=== PATIENT | female | born 1950 | race Caucasian/White ===

== ENCOUNTER 2018-10-10 09:52 | Observation (INO) | payer OTHER, MEDICARE ==
[2018-10-10] MEDS ORDERED: GABAPENTIN 300 MG CAP PO ONE (10:47)
[2018-10-10] MEDS ORDERED: ceFAZolin 2 GM/DEXTROSE 100 ML IV ONE (10:47)
[2018-10-10] MEDS ORDERED: ACETAMINOPHEN 500 MG TAB PO ONE (10:47)
[2018-10-10] MEDS ORDERED: DEXMEDETOMIDINE HCL 400 MCG in NS 100 ML IV ONE (11:30)
[2018-10-10] MEDS ORDERED: THROMBIN (BOVINE) 20,000 UNIT VIAL TP ONE (11:42)
[2018-10-10] MEDS ORDERED: SURGIFLO MATRIX KIT WITH THROMBIN 8 ML TP ONE (11:42)
[2018-10-10] MEDS ORDERED: CHLORHEXIDINE GLUC HIBICLENS 118 ML BTL TP ONE (11:42)
[2018-10-10] MEDS ORDERED: AVITENE POWDER 1 GM JAR TP ONE (11:43)
[2018-10-10] MEDS ORDERED: EPINEPHrine 1 MG/ML INJ ONE (11:43)
[2018-10-10] MEDS ORDERED: BUPIVACAINE 0.25% 30 ML SDV ONE (11:43)
[2018-10-10] MEDS ORDERED: BACITRACIN 50,000 UNITS/10 ML SYR IRR ONE (11:44)
[2018-10-10] MEDS ORDERED: REMIFENTANIL HCL 1 MG VIAL ONE (11:56)
[2018-10-10] MEDS ORDERED: LIDOCAINE 2% 100 MG/5 ML SYR ONE (11:56)
[2018-10-10] MEDS ORDERED: PROPOFOL/EMULSION 500 MG/50 ML BOTTLE IV ONE ×2 (11:56→13:46)
[2018-10-10] MEDS ORDERED: PROPOFOL 200 MG/20 ML VIAL ONE (11:56)
[2018-10-10] MEDS ORDERED: VANCOMYCIN HCL/NORMAL SALINE 250 ML IV ONE (12:00)
[2018-10-10] MEDS ORDERED: SCOPOLAMINE HYDROBROMIDE 1 MG/3 DAYS PATCH TD ONE (12:01)
--- NOTE | 2018-10-10 12:13 | PDHPUP ---
History & Physical Update H&P update statement: This history and physical update is based on an assessment of the patient which was completed after admission or registration (within 24 hours), but prior to the surgery/procedure. H&P update: H&P reviewed & patient examined, no change in patient's condition since H&P completed, changes noted
[2018-10-10] MEDS ORDERED: MIDAZOLAM 2 MG/2 ML VIAL IVP ONE (12:19)
[2018-10-10] MEDS ORDERED: MIDAZOLAM 2 MG/2 ML VIAL ONE (12:22)
[2018-10-10] MEDS ORDERED: ROCURONIUM 50 MG/5 ML VIAL ONE (12:25)
[2018-10-10] MEDS ORDERED: LIDOCAINE 2% 5 ML SDV ONE (12:25)
[2018-10-10] MEDS ORDERED: SCOPOLAMINE HYDROBROMIDE 1 MG/3 DAYS PATCH TD SCH (12:30)
--- NOTE | 2018-10-10 13:18 | PDANEPAE ---
ANE History of Present Illness Lumbar pain, radiculopathy and stenosis L4-L5 and here for B hemilaminectomies ANE Past Medical History - Cardiovascular History Hx Hypertension: Yes Hx Arrhythmias: No Hx Chest Pain: No Hx Coronary Artery / Peripheral Vascular Disease: No Hx CHF / Valvular Disease: No Hx Palpitations: No - Pulmonary History Hx COPD: No Hx Asthma/Reactive Airway Disease: No Hx Recent Upper Respiratory Infection: No Hx Oxygen in Use at Home: No Hx Sleep Apnea: No Sleep Apnea Screening Result - Last Documented: Positive Pulmonary History Comment: CHAD Positive, does not wear any device - Neurologic History Hx Cerebrovascular Accident: No Hx Seizures: No Hx Dementia: No Neurologic History Comment: left trigeminal neuralgia. lip numbness, occasional swelling. oral dryness. spinal stenosis. restless leg syndrome - Endocrine History Hx Diabetes: No Endocrine History Comment: hyperparathyroid - Renal History Hx Renal Disorders: No Renal History Comment: urgency - Liver History Hx Hepatic Disorders: No - Neurological & Psychiatric Hx Hx Neurological and Psychiatric Disorders: Yes Neurological / Psychiatric History Comment: anxiety, situational depression R/T trigeminal & back pain - Cancer History Hx Cancer: No - Congenital Disorder History Hx Congenital Disorders: No - GI History Hx Gastrointestinal Disorders: Yes Gastrointestinal History Comment: GERD - Other Health History Other Health History: Factor V Leiden - diagnosed in 2004, took warfarin for years now just on ASA 162mg daily. bruises easily. occasional small skin eruptions R/T stress. wears glasses - Chronic Pain History Chronic Pain: Yes (left face, low back) - Surgical History Prior Surgeries: C4-5, 5-6 cervical fusions. ankle surgery. tonsillectomy. hysterectomy. kidney stone removal ANE Review of Systems Review of Systems: - Exercise capacity METS (RN): 4 METS ANE Patient History - Allergies Allergies/Adverse Reactions: acetaminophen [From Lortab] Allergy (Verified 10/03/18 11:58) Rash cephalexin [From Keflex] Allergy (Verified 10/04/18 12:20) Rash, breathing issues ciprofloxacin [From Cipro] Allergy (Verified 10/04/18 12:20) Rash, breathing issues hydrocodone [From Lortab] Allergy (Verified 10/03/18 11:58) Rash metronidazole [From Flagyl] Allergy (Verified 10/04/18 12:20) Rash, breathing issues Penicillins Allergy (Verified 10/04/18 12:20) Rash, from as a child rofecoxib [From Vioxx] Allergy (Verified 10/04/18 12:20) Rash, breathing issues tramadol [From Ultram] Allergy (Verified 10/03/18 11:58) Rash - Home Medications Home Medications: Aspirin [Aspirin 81mg (*)] 162 mg PO HS 10/03/18 [Last Taken Unknown] DULoxetine [Cymbalta 60 MG (*)] 60 mg PO HS 10/03/18 [Last Taken Unknown] Furosemide [Lasix 40 MG (*)] 40 mg PO DAILY 10/03/18 [Last Taken Unknown] Omeprazole 20 mg PO DAILY 10/03/18 [Last Taken Unknown] Potassium Citrate [Potassium Citrate ER] 10 meq PO DAILY 10/03/18 [Last Taken Unknown] Pravastatin Sodium [Pravachol] 40 mg PO HS 10/03/18 [Last Taken Unknown] amLODIPine BESYLATE [Norvasc 5 mg (*)] 5 mg PO HS 10/03/18 [Last Taken Unknown] cycloSPORINE 0.05% [Restasis Opht Drops(*)] 1 drop EACHEYE BID 10/03/18 [Last Taken Unknown] rOPINIRole HCL [Requip 5mg (*)] 10 mg PO HS 10/03/18 [Last Taken Unknown] - NPO status NPO Since - Liquids (Date): 10/09/18 NPO Since - Liquids (Time): 20:30 NPO Since - Solids (Date): 10/09/18 NPO Since - Solids (Time): 22:00 - Smoking Hx Smoking Status: Never smoked - Family Anes Hx Family Hx Anesthesia Complications: none ANE Labs/Vital Signs - Vital Signs Blood Pressure: 139/93 Heart Rate: 93 Respiratory Rate: 14 O2 Sat (%): 95 Height: 151.13 cm Weight: 65.771 kg ANE Physical Exam - Airway Neck exam: decreased ROM, spinal fusion, short neck Mallampati Score: Class 3 Mouth exam: normal dental/mouth exam - Pulmonary Pulmonary: no respiratory distress, no rales or rhonchi - Cardiovascular Cardiovascular: regular rate and rhythym, no murmur, rub, or gallop - ASA Status ASA Status: III ANE Anesthesia Plan Anesthesia Plan: general endotracheal anesthesia (Plan for GS and to lube eyes and lips. Also noted allergies and ordered Vanco in place of ancef for periop antibiotic. Patient did not receive any ancef. wrote Pre op and failed to save it prior to rolling back) Total IV Anesthesia: Yes
[2018-10-10] MEDS ORDERED: KETOROLAC 30 MG/1 ML SDV ONE (14:51)
[2018-10-10] MEDS ORDERED: ONDANSETRON 4 MG/2 ML VIAL ONE (14:52)
[2018-10-10] MEDS ORDERED: oxyCODONE IR 5 MG TAB PO PRN (14:55)
[2018-10-10] MEDS ORDERED: LR 500 ML IV PRN ×2 (14:55→16:38)
[2018-10-10] MEDS ORDERED: DIAZEPAM 5 MG/ML 1 ML SYR IVP PRN (14:55)
[2018-10-10] MEDS ORDERED: HYDROmorphONE/DILAUDID 2 MG/ML INJ IVP PRN (14:55)
[2018-10-10] MEDS ORDERED: fentaNYL 100 MCG/2 ML INJ IVP PRN (14:55)
[2018-10-10] MEDS ORDERED: MEPERIDINE 25 MG/0.5 ML AMP IVP PRN (14:55)
[2018-10-10] MEDS ORDERED: NALOXONE HCL 0.4 MG/ML INJ IVP PRN (14:55)
[2018-10-10] MEDS ORDERED: SUGAMMADEX SODIUM 200 MG/2 ML VIAL IVP ONE (15:07)
[2018-10-10] MEDS ORDERED: HYDROmorphONE/DILAUDID 2 MG/ML INJ ONE (15:07)
[2018-10-10] MEDS ORDERED: METHOCARBAMOL 1,000 MG in NS 50 ML IV ONE (15:10)
--- NOTE | 2018-10-10 15:16 | POSTOPPROG ---
Post Op Note Date of Operation: 10/10/18 Surgeon: Sawyer Miguel [employer] Brusher: HEENA Phillips APC Anesthesia: GET(General Endotracheal) Pre-op Diagnosis: lumbar stenosis, spondylolisthesis Post-op Diagnosis: lumbar stenosis, spondylolisthesis Indication: lumbar stenosis, spondylolisthesis Procedure: L4/5 bilateral hemilaminotomy and Limiflex placement Inf/Abcess present in the surg proc area at time of surgery?: No PA Addendum - Addendum .: S: Resting comfortable, Denies any new leg pain O: NAD A&Ox3 MAEx4 5/5 and equal in BUE and BLE A/p L4/5 bilateral hemilaminotomy and Limiflex placement -Optimize pain management -Advance diet as tolerated -May d/c home when meets PACU criteria -Please notify NS with any change in neuro/motor exam addendum: Patient admitted to the floor for decreased O2 sats anf hypotension in PACU
--- NOTE | 2018-10-10 16:32 | GOP ---
[f rep st] OPERATIVE REPORT DATE OF OPERATION: 10/10/2018 NEUROSURGEON: Sawyer Miguel MD. BOX SHOOK PATCHER: Bing Phillips. ANESTHESIA: General. PREOPERATIVE DIAGNOSIS: 1. L4-L5 grade 1 spondylolisthesis with lateral recess and central stenosis. 2. Bilateral lower extremity claudication, radiculopathy and low back pain. 3. Treatment refractory to nonoperative intervention. POSTOPERATIVE DIAGNOSIS: 1. L4-L5 grade 1 spondylolisthesis with lateral recess and central stenosis. 2. Bilateral lower extremity claudication, radiculopathy and low back pain. 3. Treatment refractory to nonoperative intervention. PROCEDURE PERFORMED: 1. Bilateral L4-L5 hemilaminotomies with mesofacetectomies and lateral recess decompressions. 2. Placement of the LimiFlex device around the cranial aspect of L4 and caudal aspect of L5 spinous processes. 3. Use of intraoperative fluoroscopy, less than 1 hour physician time. 4. Use of neuromonitoring. 5. Use of the operating microscope. FINDINGS: per imaging SPECIMENS: None. ESTIMATED BLOOD LOSS: 20 mL. INDICATIONS: The patient is a very pleasant, 67-year-old woman with a grade 1 spinal listhesis L4-5 who presented with low back pain and lower extremity claudication. After discussion of risks, benefits, and alternatives and after failing nonoperative interventions, she opted to proceed forth with the LimiFlex FDA trial device in contrast to a posterior decompression and fusion. Consents were signed. She presents now for that surgical intervention. DESCRIPTION OF PROCEDURE: The patient was brought to the operating theater and underwent general endotracheal anesthesia without complications. She had Venodynes, ROMAN hose and the appropriate lines placed by Anesthesia. She was flipped prone onto the Johnnie frame, and all bony processes inspected and padded. The lower lumbar region was prepped and draped in the usual sterile surgical fashion. A time-out was completed per protocol. The patient received antibiotics within 1 hour of incision. Using lateral fluoroscopy and a spinal needle, we picked our entry point at the L4-5 level. This was marked in the midline. The incision infiltrated with Marcaine with epinephrine. The incision was taken down with the scalpel blade and using monopolar, taken down through midline through the lumbodorsal fascia. A subperiosteal dissection was carried out to the medial facet joints of L4- L5. Deep retractors were placed to maintain our exposure, and we confirmed our level using lateral fluoroscopy. The microscope was brought into the field to assist with microscopic dissection and to maintain illumination and magnification. At this point, using a combination of the bur tip and the drill bit and Kerrison punches, we completed a bilateral L4-L5 hemilaminotomy with mesofacetectomies. We resected the ligamentum flavum until we felt that everything was well decompressed on manual palpation. At this point, we placed the LimiFlex device around the cranial aspect of the L4 spinous process and the caudal aspect of the L5 spinous process per the manager ent's instructions. The device was tightened. We confirmed location of the device using AP and lateral fluoroscopic images. Once we felt that everything was well decompressed, and the device was in the appropriate place, the placement system was removed. We irrigated the wound copiously with bacitracin irrigation. We closed the wound in multiple layers using Vicryl sutures deep layers and Dermabond for the skin. The patient's wounds were dressed sterilely. She was then flipped supine onto the transfer cart, where she was awakened, extubated and taken to the recovery room in stable condition. There were no complications and no noted changes on neuromonitoring throughout the procedure. COMPLICATIONS: None. /[id number]/MODL MTDBarbara
[2018-10-10] MEDS ORDERED: ONDANSETRON DISINTEGRATING 4 MG TAB PO PRN (17:47)
[2018-10-10] MEDS ORDERED: ONDANSETRON 4 MG/2 ML VIAL IVP PRN (17:47)
[2018-10-10] MEDS ORDERED: POLYETHYLENE GLYCOL 3350 17 GM PKT PO PRN (17:47)
[2018-10-10] MEDS ORDERED: diphenhydrAMINE 25 MG CAP PO PRN (17:47)
[2018-10-10] MEDS ORDERED: BISACODYL 10 MG SUPP PR PRN (17:47)
[2018-10-10] MEDS ORDERED: MAGNESIUM HYDROXIDE 30 ML UDCUP PO PRN (17:47)
[2018-10-10] MEDS ORDERED: HYDROmorphONE/DILAUDID 1 MG/ML INJ IVP PRN (17:47)
[2018-10-10] MEDS ORDERED: LACTULOSE 20 GM/30 ML UDCUP PO PRN (17:47)
[2018-10-10] MEDS ORDERED: NS 1,000 ML IV SCH (18:00)
[2018-10-10] MEDS ORDERED: PRAVASTATIN SODIUM 40 MG TAB PO SCH (21:00)
[2018-10-10] MEDS ORDERED: DULoxetine 60 MG CAP PO SCH (21:00)
[2018-10-10] MEDS: SENNOSIDES/DOCUSATE SODIUM TAB PO SCH (21:56)
[2018-10-11] MEDS ORDERED: VANCOMYCIN 750 MG in D5W 150 ML IV ONE
[2018-10-11] MEDS: cycloSPORINE 0.05% 30 DROPERETTE/BOX EACHEYE SCH ×2 (01:11→11:04)
[2018-10-11] MEDS: oxyCODONE IR 5 MG TAB PO PRN ×2 (01:27→07:59)
[2018-10-11] MEDS: SENNOSIDES/DOCUSATE SODIUM TAB PO SCH (07:54)
[2018-10-11 08:46] VITALS: BP 108/67
--- NOTE | 2018-10-11 08:48 | NEUSURGPN ---
Date of Surgery: 10/10/18 Post Op Day: 1 Assessment/Plan: 67 yo female s/p L4/5 bilateral hemilaminotomy and Limiflex placement POD#1 -Pain controlled -Tolerating diet -Wean to room air -BP stable -Home this morning Discussed with Dr. Miguel. Subjective: Having localized back pain. Objective: Awake. Alert. PERRL. EOMI Facial expression symmetrical Muscle strength full at 5/5 Sensation intact - Physician Discussed Patient with : [facility] Physical Exam - Vitals, I&O, Labs I and O 10/10/18 10/11/18 10/12/18 05:59 05:59 05:59 Intake Total 1725 Output Total 610 300 Balance 1115 -300 Weight 65.771 kg Intake: Oral (ml) 25 IV Intake (ml) 1700 Output: Urine (ml) 600 300 Bedside Commode 600 300 Estimated Blood Loss (ml) 10 Other: Intake Quantity Yes Sufficient Number of Voids Bedside Commode 1 1 Toilet 1 Vital Signs Temp Pulse Resp BP Pulse Ox 36.5 C 89 16 108/67 94 10/11/18 08:00 10/11/18 08:00 10/11/18 08:00 10/11/18 08:00 10/11/18 08:00 ICD10 Worksheet Patient Problems: Problems Problem Status Onset Lumbar stenosis Acute - ICD10 Problem Qualifiers (1) Lumbar stenosis
[2018-10-11] MEDS ORDERED: PANTOPRAZOLE SODIUM 40 MG TAB PO SCH (09:00)
[2018-10-11] MEDS ORDERED: POTASSIUM CITRATE 10 MEQ TAB PO SCH (09:00)
[2018-10-11] MEDS ORDERED: FUROSEMIDE 40 MG TAB PO SCH (09:00)
--- NOTE | 2018-10-11 10:56 | ASMTLACE ---
LIZBETH Length of stay for Answers: 2 days current admission Acuity / Level of Answers: No Care: Did the patient have an inpatient admission? Comorbidities - select Answers: Opioid dependence all that apply / Chronic pain Other Notes: HTN; GERD; Factor V Leiden # of Emergency department Answers: 0 visits in the last 6 months Social determinants Answers: Mental health diagnosis (anxiety, depression, pers onality disorders, etc.) Score: 10 Date Signed: 10/11/2018 10:55 AM Electronically Signed By:SOLITARIO Elizabeth
--- NOTE | 2018-10-11 10:58 | ASMTCMCOM ---
CM Note CM Note Notes: Pt had planned surgery for lumbar stenosis, resides with spouse. PT rec outpatient. Pt to obtain walker. No CM d/c needs identified. Date Signed: 10/11/2018 10:57 AM Electronically Signed By:SOLITARIO Elizabeth
[2018-10-11] MEDS ORDERED: amLODIPine BESYLATE 5 MG TAB PO SCH (21:00)
[2018-10-12] MEDS ORDERED: ENOXAPARIN 40 MG/0.4 ML SYR SC SCH (09:00)
[2018-10-13] MEDS ORDERED: PATCH REMOVAL 1 EA PATCH TD SCH (12:21)
== END 2018-10-11 12:21 | disposition home or self-care (01) ==
LOC: F3N 10:33 → INTOOBSV 10:33 → F3N 18:04
PROVIDERS: ADMIT Physician Assistant; ATTEND Neurological Surgery
DX: M43.16 Spondylolisthesis, lumbar region (principal); M48.062 Spinal stenosis, lumbar region with neurogenic claudication; M54.16 Radiculopathy, lumbar region
CPT/HCPCS: 63030; 97161; 97165; 97535; C1713; J0171; J1170; J1885; J2001; J2250; J2405; J2704; J2800; J3370

== ENCOUNTER → 2018-10-14 | Outpatient (CLI) | payer OTHER, MEDICARE | LOC: BMCIMAGING 15:25 | PROVIDERS: ATTEND Internal Medicine | DX: R60.0 Localized edema (principal); D68.2 Hereditary deficiency of other clotting factors; Z98.890 Other specified postprocedural states ==

== ENCOUNTER → 2019-01-06 | Outpatient (CLI) | payer OTHER, MEDICARE | LOC: FIMAGING 13:31 | PROVIDERS: ATTEND Physician Assistant | DX: M43.16 Spondylolisthesis, lumbar region (principal); M54.40 Lumbago with sciatica, unspecified side; Z98.1 Arthrodesis status ==

== ENCOUNTER 2019-01-13 02:35 | Inpatient (IN) | payer OTHER, MEDICARE ==
--- NOTE | 2019-01-13 03:21 | EDPHY ---
H & P Stated Complaint: low back pain Time Seen by Provider: 01/13/19 03:21 HPI/ROS: Chief Complaint: Severe back pain HPI: Patient is a 68-year-old female with a history of an L5-C9Tphulkqy procedure performed in September of this year she was improving until yesterday when she was walking she started developing pain in the lower back radiating down both legs although left with severe right was mild. She does deny any associated weakness or numbness she denies bowel or bladder incontinence or inability to void. Pain is exacerbated by laughing and bending over and the pain is so severe it is giving her headache she describes as 10/10. She tried herbal patch without relief and that usually works for her pain. She also took her 1 leftover oxycodone from her surgery and that gave her no relief. She denies any associated infectious symptoms. PMH: Spinal fusion, arthritis Social History: No current Tobacco ROS: Neuro: + headache no weakness numbness tingling bowel or bladder incontinence or inability to void Constitutional: No Fever, No dizziness ENT: No runny nose, No sore throat Cardiac: No Chest Pain Pulmonary: No Shortness of Breath GI: No abdominal Pain Skin: No rash Heme: No easy bruising : No urinary problems Eyes: No vision problems Musculoskeletal: No neck pain, + back pain radiating to both legs Complete Review of systems negative except as noted above Physical Exam: General: Alert in severe distress from pain with evident hypertension, she is laying on her back with her legs elevated on a pillow Eyes: no icterus or pallor ENT: Mouth: Mucus membranes dry Neck: supple, no vertebral tenderness Lungs CTA bilaterally, no respiratory distress Cardiac: Normal pulses, normal rate, normal rhythm, normal heart sounds GI: Abd Soft, non tender, no distention Back: Normal inspection, wound is clean dry and intact without signs of cellulitis fluctuance or tenderness, No CVAT, no vertebral tenderness Extremities: Mild bilateral swelling, nml ROM except for limitation due to pain in the back Skin: Warm, pink and dry, no rash, normal turgor Neuro: A&Ox3, MAEE, Nml Speech, normal motor exam in all muscle groups of the lower extremities bilaterally. Normal 2+ DTRs bilaterally. Normal sensation bilaterally Reevaluations, MDM, and data interpretation Data Interpretation Reviewed prior records - [facility]. Surgery care reviewed from prior visit in September. XR shows no malalignment and hardware appears intact without fractures or migration Independently viewed by me ED Course Initial Eval: Pt greeted and advised about plan for care. Reevaluation 1. Patient's pain recurred Dilaudid repeated. Reevaluation 2. After 2nd mg of IV Dilaudid patient still has 8/10 pain though her blood pressure is improved she has slurred speech. At this point will switch to ketamine order labs and admit her to the hospital. I did discuss the case with the patient's on-call neurosurgeon who agreed to come by and consult on the patient if the patient is admitted to medical service. Also discussed the case with the hospitalist Dr. Ordonez. Medical Decision Making Differential Diagnosis and MDM: 68-year-old female with acute intractable lower back pain 3 months postop. Differential diagnosis includes hardware failure, abscess, cellulitis, radicular pain and sciatica. Patient has no neurologic deficits or complaints. She also has no fever. No skin signs of infection. She does have intractable pain so with multiple doses of IV opiates and ketamine patient will be admitted to the hospital for pain control consultation of Spine. - Personal History Current Tetanus/Diphtheria Vaccine: Yes Current Tetanus Diphtheria and Acellular Pertussis (TDAP): Yes - Medical/Surgical History Hx Asthma: No Hx Chronic Respiratory Disease: No Hx Diabetes: No Hx Cardiac Disease: No Hx Renal Disease: No Hx Cirrhosis: No Hx Alcoholism: No Hx HIV/AIDS: No Hx Splenectomy or Spleen Trauma: No Other PMH: hysterectomy. lumb lamiflex. facctor 5 liden - Social History Smoking Status: Never smoked Constitutional: Initial Vital Signs Temperature (C) 36.5 C 01/13/19 02:40 Heart Rate 78 01/13/19 02:40 Respiratory Rate 18 01/13/19 02:40 Blood Pressure 145/99 H 01/13/19 02:40 O2 Sat (%) 96 01/13/19 02:40 O2 Delivery Mode Room Air Allergies/Adverse Reactions: acetaminophen [From Lortab] Allergy (Verified 10/03/18 11:58) Rash cephalexin [From Keflex] Allergy (Verified 10/04/18 12:20) Rash, breathing issues ciprofloxacin [From Cipro] Allergy (Verified 10/04/18 12:20) Rash, breathing issues hydrocodone [From Lortab] Allergy (Verified 10/03/18 11:58) Rash metronidazole [From Flagyl] Allergy (Verified 10/04/18 12:20) Rash, breathing issues Penicillins Allergy (Verified 10/04/18 12:20) Rash, from as a child rofecoxib [From Vioxx] Allergy (Verified 10/04/18 12:20) Rash, breathing issues tramadol [From Ultram] Allergy (Verified 10/03/18 11:58) Rash Home Medications: Medication Instructions Recorded DULoxetine [Cymbalta 60 MG (*)] 60 mg PO HS 10/03/18 Furosemide [Lasix 40 MG (*)] 40 mg PO DAILY 10/03/18 Omeprazole 20 mg PO DAILY 10/03/18 Potassium Citrate [Potassium 10 meq PO DAILY 10/03/18 Citrate ER] Pravastatin Sodium [Pravachol] 40 mg PO HS 10/03/18 cycloSPORINE 0.05% [Restasis Opht 1 drop EACHEYE BID 10/03/18 Drops(*)] rOPINIRole HCL [Requip 5mg (*)] 10 mg PO HS 10/03/18 Sennosides/Docusate Sodium 1 - 2 tab PO BID tab 10/11/18 [Senokot-S] Medical Decision Making - Data Points Medications Given: Acetaminophen (Tylenol) 1,000 mg PO Q8H XAVIER Stop: 07/12/19 06:59 Last Admin: 01/13/19 08:01 Dose: Not Given Ondansetron HCl (Zofran Odt) 4 mg PO Q4HRS PRN PRN Reason: Nausea/Vomiting, Use 1st Stop: 07/12/19 06:45 Last Admin: 01/13/19 08:06 Dose: 4 mg Oxycodone HCl (Oxycodone Ir) 5 - 10 mg PO Q3HRS PRN PRN Reason: Pain, Severe Able to Take PO Stop: 01/23/19 06:47 Last Admin: 01/13/19 08:05 Dose: 5 mg Prednisone (Prednisone) 40 mg PO DAILY XAVIER Stop: 07/12/19 07:29 Last Admin: 01/13/19 08:06 Dose: 40 mg Discontinued Medications Hydromorphone HCl (Dilaudid) 1 mg IVP EDNOW ONE Stop: 05/20/19 04:01 Last Admin: 01/13/19 04:19 Dose: 1 mg Hydromorphone HCl (Dilaudid) 1 mg IVP EDNOW ONE Stop: 01/13/19 05:38 Last Admin: 01/13/19 05:48 Dose: 1 mg Ketamine HCl 7 mg/ Syringe 0.14 mls @ 8.4 mls/hr IVP ONCE ONE Stop: 01/13/19 06:29 Last Admin: 01/13/19 06:47 Dose: 0.14 mls Departure - Departure Disposition: [facility] Acute Clinical Impression: Lumbar stenosis, acute intractable lumbar back pain Condition: Fair
[2019-01-13] MEDS ORDERED: HYDROmorphONE/DILAUDID 2 MG/ML INJ IVP ONE ×2 (04:00→05:37)
[2019-01-13] MEDS ORDERED: HYDROmorphONE/DILAUDID 1 MG/ML INJ ONE ×2 (04:16→05:42)
[2019-01-13] MEDS ORDERED: KETAMINE 7 MG in SYRINGE 0 ML IVP ONE (06:28)
[2019-01-13] MEDS ORDERED: ONDANSETRON DISINTEGRATING 4 MG TAB PO PRN (06:46)
[2019-01-13] MEDS ORDERED: ONDANSETRON 4 MG/2 ML VIAL IVP PRN (06:46)
[2019-01-13] MEDS ORDERED: KETAMINE 200 MG/20 ML VIAL ONE (06:46)
[2019-01-13] MEDS ORDERED: HYDROmorphONE/DILAUDID 1 MG/ML INJ IVP PRN (06:48)
[2019-01-13] MEDS ORDERED: HYDROCODONE/APAP 5/325 TAB PO PRN (06:48)
[2019-01-13 07:11] LABS: PLATELET COUNT 301 10^3/uL (150-400)
--- NOTE | 2019-01-13 07:23 | PDGENHP ---
History and Physical - Chief Complaint Back pain - History of Present Illness 68 yo F w/ hx of chronic back pain s/p cervical and lumbar surgeries presents with acute worsening of back pain. She was walking yesterday when her back pain suddenly worsened. It is so severe that she has difficulty walking. The pain radiates down both legs L>R, which is an increase from baseline. She denies red flag symptoms such as weakness, numbness, or loss of bowel or bladder control. She also denies acute fever and chills. She does think he may have had low grade fevers for several months but no objective findings of this. XR in the ED appears unremarkable but final read pending. NSG consulted in the ED. She is being admitted for pain control. Case discussed with ED physician Dr. Colin; records reviewed and summarized above. History Information - Allergies/Home Medication List Allergies/Adverse Reactions: acetaminophen [From Lortab] Allergy (Verified 10/03/18 11:58) Rash cephalexin [From Keflex] Allergy (Verified 10/04/18 12:20) Rash, breathing issues ciprofloxacin [From Cipro] Allergy (Verified 10/04/18 12:20) Rash, breathing issues hydrocodone [From Lortab] Allergy (Verified 10/03/18 11:58) Rash metronidazole [From Flagyl] Allergy (Verified 10/04/18 12:20) Rash, breathing issues Penicillins Allergy (Verified 10/04/18 12:20) Rash, from as a child rofecoxib [From Vioxx] Allergy (Verified 10/04/18 12:20) Rash, breathing issues tramadol [From Ultram] Allergy (Verified 10/03/18 11:58) Rash Home Medications: DULoxetine [Cymbalta 60 MG (*)] 60 mg PO HS 10/03/18 [Last Taken Unknown] Furosemide [Lasix 40 MG (*)] 40 mg PO DAILY 10/03/18 [Last Taken Unknown] Omeprazole 20 mg PO DAILY 10/03/18 [Last Taken Unknown] Potassium Citrate [Potassium Citrate ER] 10 meq PO DAILY 10/03/18 [Last Taken Unknown] Pravastatin Sodium [Pravachol] 40 mg PO HS 10/03/18 [Last Taken Unknown] cycloSPORINE 0.05% [Restasis Opht Drops(*)] 1 drop EACHEYE BID 10/03/18 [Last Taken Unknown] rOPINIRole HCL [Requip 5mg (*)] 10 mg PO HS 10/03/18 [Last Taken Unknown] I have personally reviewed and updated: family history, medical history - Past Medical History arthritis, DVT, pulmonary embolism Additional medical history: Trigeminal nueralgia. FVL - Surgical History Reports: spinal surgery - Family History Additional family history: FVL - Social History Smoking Status: Never smoked Review of Systems Review of Systems: ROS: 10pt was reviewed & negative except for what was stated in HPI & below Physical Exam Physical Exam: Temp Pulse Resp BP Pulse Ox 36.5 C 72 16 129/90 H 97 01/13/19 02:40 01/13/19 05:44 01/13/19 05:44 01/13/19 05:44 01/13/19 05:44 Constitutional: appears nourished, uncomfortable Eyes: PERRL, EOMI Ears, Nose, Mouth, Throat: moist mucous membranes, no oral mucosal ulcers Cardiovascular: regular rate and rhythym, no murmur, rub, or gallop Respiratory: no respiratory distress, clear to auscultation Gastrointestinal: normoactive bowel sounds, soft, non-tender abdomen Skin: warm, normal color Neurologic: AAOx3, CN II-XII Intact Psychiatric: interacting appropriately, not anxious Lab Data & Imaging Review 01/13/19 07:00 01/13/19 07:00 WBC 12.44 10^3/uL (3.80-9.50) H 01/13/19 07:00 RBC 4.75 10^6/uL (4.18-5.33) 01/13/19 07:00 Hgb 15.2 g/dL (12.6-16.3) 01/13/19 07:00 Hct 43.7 % (38.0-47.0) 01/13/19 07:00 MCV 92.0 fL (81.5-99.8) 01/13/19 07:00 MCH 32.0 pg (27.9-34.1) 01/13/19 07:00 MCHC 34.8 g/dL (32.4-36.7) 01/13/19 07:00 RDW 12.2 % (11.5-15.2) 01/13/19 07:00 Plt Count 301 10^3/uL (150-400) 01/13/19 07:00 MPV 10.0 fL (8.7-11.7) 01/13/19 07:00 Neut % (Auto) 58.2 % (39.3-74.2) 01/13/19 07:00 Lymph % (Auto) 32.4 % (15.0-45.0) 01/13/19 07:00 [place] % (Auto) 7.1 % (4.5-13.0) 01/13/19 07:00 Eos % (Auto) 1.4 % (0.6-7.6) 01/13/19 07:00 Baso % (Auto) 0.6 % (0.3-1.7) 01/13/19 07:00 Nucleat RBC Rel Count 0.0 % (0.0-0.2) 01/13/19 07:00 Absolute Neuts (auto) 7.23 10^3/uL (1.70-6.50) H 01/13/19 07:00 Absolute Lymphs (auto) 4.03 10^3/uL (1.00-3.00) H 01/13/19 07:00 Absolute Monos (auto) 0.88 10^3/uL (0.30-0.80) H 01/13/19 07:00 Absolute Eos (auto) 0.18 10^3/uL (0.03-0.40) 01/13/19 07:00 Absolute Basos (auto) 0.08 10^3/uL (0.02-0.10) 01/13/19 07:00 Absolute Nucleated RBC 0.00 10^3/uL (0-0.01) 01/13/19 07:00 Immature Gran % 0.3 % (0.0-1.1) 01/13/19 07:00 Immature Gran # 0.04 10^3/uL (0.00-0.10) 01/13/19 07:00 Assessment & Plan Assessment: 68 yo F w/ chronic back pain s/p surgery presents with acute flair. Plan: 1. Acute on chronic back pain - No clear precipitant as patient was walking as flare occurred. Pain is severe and limiting patient's ability to walk. She denies red flag symptoms such as weakness, numbness, or loss of bowel or bladder function. She does not take any pain medication at home at baseline. She had a LimiFlex device placed on 10/10/[address] Miguel. - Admit for observation - Await final XR read - Obtain basic lab work - NSG consulted in the ED, will defer need for further imaging to their judgment - Will start APAP scheduled + prednisone - Pain management order set placed - PT/OT evaluations 2. Hx DVT/PE, FVL - With hx of prior blood clots. No longer on AC. 3. Hx trigeminal neuralgia Diet - Regular Code - Full Ppx - SCDs Dispo - Admit under observation status
[2019-01-13] MEDS: ACETAMINOPHEN 500 MG TAB PO SCH ×3 (08:01→22:34)
[2019-01-13] MEDS: oxyCODONE IR 5 MG TAB PO PRN ×4 (08:05→22:35)
[2019-01-13] MEDS: predniSONE 20 MG TAB PO SCH ×2 (08:06→10:25)
--- NOTE | 2019-01-13 09:31 | NEUSURGPN ---
Assessment/Plan: 68 yr old female s/p L4-5 hemilaminotomy and limiflex device placement with Dr Miguel on 10/10/18 Please see dictated consult when available -Patient was doing well post op until yesterday, she began to experience severe lower back and whole LLE pain. Denies weakness or bowel and bladder difficulties -Will get MRI lumbar to eval -Patient admitted to Hospitalist for pain management patient was seen and examined by myself and Dr Miguel in the ER today at 0720 Subjective: low back and left leg pain Objective: AxOx4 MAEx4 5/5 BUE, BLE positive straight leg raise on the left Neuro Check Frequency: per routine Urinary Catheter in Place: No - Physician Patient Seen by Dr.: Miguel Neurosurgery Physical Exam - Vitals, I&O, Labs Vital Signs Temp Pulse Resp BP Pulse Ox 35.7 C L 75 16 112/69 93 01/13/19 07:51 01/13/19 07:51 01/13/19 07:51 01/13/19 07:51 01/13/19 07:51 Laboratory Results 01/13/19 07:00 01/13/19 07:00 ICD10 Worksheet Patient Problems: Problems Problem Status Onset Lumbar stenosis Acute
[2019-01-13] MEDS ORDERED: CEPACOL LOZENGE PO PRN (09:53)
[2019-01-13] MEDS: FUROSEMIDE 40 MG TAB PO SCH (11:20)
[2019-01-13] MEDS: cycloSPORINE 0.05% 30 DROPERETTE/BOX EACHEYE SCH ×2 (13:21→22:34)
[2019-01-13] MEDS ORDERED: KETOROLAC 30 MG/1 ML SDV IVP ONE (14:15)
--- NOTE | 2019-01-13 15:26 | HOSPPROG ---
Hospitalist Progress Note Assessment/Plan: #Back pain: h/o L4-5 hemilaminotomy & limiflex device -NSGY evaluted. MRI pending -pain controlled Subjective: lower back pain with radiation down left leg Objective: Vital Signs Temp Pulse Resp BP Pulse Ox 36.9 C 98 16 147/90 H 90 L 01/13/19 15:17 01/13/19 15:17 01/13/19 15:17 01/13/19 15:17 01/13/19 15:17 Laboratory Results 01/13/19 07:00 01/13/19 07:00 01/12/19 01/13/19 01/14/19 05:59 05:59 05:59 Intake Total 200 Output Total 500 Balance -300 - Physical Exam Constitutional: no apparent distress Ears, Nose, Mouth, Throat: moist mucous membranes Cardiovascular: regular rate and rhythym Respiratory: no respiratory distress Gastrointestinal: normoactive bowel sounds Genitourinary: no bladder fullness Skin: warm Musculoskeletal: full muscle strength Neurologic: AAOx3 Psychiatric: interacting appropriately ICD10 Worksheet Patient Problems: Problems Problem Status Onset Lumbar stenosis Acute
--- NOTE | 2019-01-13 17:27 | ASMTCMCOM ---
CM Note CM Note Notes: Pt is a 68 y/o female admitted for back pain. Pt reports that she had surgery on 10/10 w/ Dr. Miguel. Pt would like CM to set up HC services w/ [facility]. Referral sent and they are able to accept. Therapies are pending at this time. Pt lives w/ her and reports that he can do the cooking. Pt reports that she can ask for help if she needs it. Pt reports that she uses a cane occasionally. CM confirmed pts address, phone number and PCP. CM to follow. Plan: [facility]; PT, OT Date Signed: 01/13/2019 03:15 PM Electronically Signed By:MELVA Navarro
[2019-01-13] MEDS ORDERED: methylPREDNISolone 4 MG TAB PO SCH ×2 (18:00→19:00)
--- NOTE | 2019-01-13 21:20 | GCON ---
[f rep st] CONSULTATION EMERGENCY ROOM CONSULTATION DATE OF CONSULTATION: 01/13/2019 CHIEF COMPLAINT: Low back and left leg pain. HISTORY OF PRESENT ILLNESS: Patient is a 68-year-old female, who is status post L4-5 hemilaminotomy and placement of a LimiFlex device with Dr. Sawyer Miguel on October 10, 2018. Patient was doing well following surgery until yesterday. Patient notes that after she completed a walk yesterday, she began to experience a pressure-like pain in her lower back with shooting pain down into her left leg, which is encompassing her whole leg in no dermatomal pattern. Patient denies any weakness in her lower extremities and denies any issues with her bowel or bladder continence. Patient denies any right leg symptoms. REVIEW OF SYSTEMS: A 10-point review of systems was performed, and negative aside from what was mentioned in the HPI. PAST MEDICAL HISTORY: Arthritis. PAST SURGICAL HISTORY: 1. In 1988, a complete hysterectomy. 2. 2000 and 2001, cervical fusion of C4-5 and C5-6. 3. 2008, kidney stone. 4. 2011, broken ankle. 5. 2012, tonsillectomy. 6. 2016, colon surgery for a large polyp. 7. In 2019, an L4-5 lumbar hemilaminotomy with LimiFlex device placement. ALLERGIES: Cipro, Flagyl, penicillins, Lortab 10/325, Keflex, buspirone, griseofulvin, Ultram. SOCIAL HISTORY: The patient is . She has 3 children. She does not drink alcohol, and does not use nicotine products. Denies any illicit drug use. FAMILY HISTORY: Reviewed and noncontributory to current situation. LABORATORY: White blood cell count is 12.44, hemoglobin 15.2, hematocrit 43.7, platelets are 301. Sodium is 139, potassium 4.1, BUN is 18, creatinine 0.6, glucose 109. IMAGING: X-ray of the lumbar spine demonstrates postsurgical changes with a spinal fixation device at L4-5, which is stable in appearance. Mild disk height narrowing at L4-5 with a mild anterolisthesis of L4 on L5 that are unchanged. No evidence for acute compression fracture of the lumbar spine. There is a chronic compression deformity of T11 that is stable. MRI of the lumbar spine, performed without contrast, demonstrates postsurgical changes at L4-5 with a left hemilaminotomy and spinal fixation with slight improvement of the central spinal canal narrowing on the left and left lateral recess narrowing. There continues to be persistent severe central spinal canal narrowing and stable right lateral recess narrowing. Stable moderate bilateral neural foraminal narrowing. Milder degenerative disk and degenerative joint disease at other levels with stable appearance. PHYSICAL EXAM: VITAL SIGNS: Blood pressure is 111/68, heart rate is 89, oxygen saturation is 94% on 2 L nasal cannula, temperature is 36.7 degrees Celsius. HEENT: Head is normocephalic and atraumatic. Pupils equal, round, and reactive to light. EOMI is intact. Full visual avina by confrontation. RESPIRATORY AND CARDIAC: Deferred. ABDOMEN, GENITOURINARY, RECTAL: Deferred. NEUROLOGIC: The patient is awake, and alert, and oriented to name, place, location, date, time, and situation. Memory is intact to immediate past and current events. Speech: No aphasia or dysphonia. Cranial nerves 2 through 12 are grossly intact. Face is symmetric. Tongue protruded midline. Palate and uvula elevate symmetrically. Shoulder shrug is symmetric. Hearing is intact to light conversation. Motor: Patient has 5/5 strength in all muscle groups in bilateral upper and lower extremities to include deltoids, biceps, triceps, brachialis, wrist flexion and extensors, chief security officer intrinsic fingers iliopsoas, quadriceps, hamstring, plantar flexion, dorsiflexion, EHL testing. Sensation is grossly intact to light touch throughout all dermatomal distributions in bilateral lower extremities. The patient does have a positive straight-leg raise on the left. Is very comfortable throughout the exam with her left leg. NICOLETTE test is negative bilaterally. Reflexes in biceps, brachioradialis, knee jerk are 2+/4. Babinski is negative. Lord's is negative and there is no evidence of clonus. ASSESSMENT AND PLAN: The patient is a 68-year-old female, who is status post left hemilaminotomy and LimiFlex device placement at L4-[address] Miguel on October 10, 2018. The patient tolerated the procedure well without complication. Had been doing very well postoperatively until yesterday, when she had acute onset of pain following a walk. Patient has terrible pain in her lower back, as well diffusely into her left leg. She does not have any weakness on exam. Her MRI of the lumbar spine shows some persistent central stenosis at the level of her surgery. The patient is admitted to the hospitalist service, and we appreciate their help with pain management. We have ordered Toradol 30 mg IV x1 to be given. Dr. Miguel has reviewed the MRI as well, and will speak with the patient about the plan of care. We may consider injections if oral and IV medications do not help subside her acute onset of pain. Patient was seen and examined in the emergency room this morning at 7:20 a.m. by myself and Dr. Sawyer Miguel in the emergency room. /[id number]/MODL MTDD
[2019-01-13] MEDS: DULoxetine 30 MG CAP PO SCH (22:34)
[2019-01-13] MEDS: SENNOSIDES/DOCUSATE SODIUM TAB PO SCH (22:35)
[2019-01-13] MEDS: PRAVASTATIN SODIUM 40 MG TAB PO SCH (22:35)
[2019-01-14] MEDS: oxyCODONE IR 5 MG TAB PO PRN ×3 (03:19→14:58)
[2019-01-14] MEDS ORDERED: methylPREDNISolone 4 MG TAB PO SCH ×2 (07:30→21:00)
--- NOTE | 2019-01-14 08:02 | NEUSURGPN ---
Assessment/Plan: Assessment: 68 yr old female s/p L4-5 hemilaminotomy and limiflex device placement with Dr Miguel on 10/10/18 Plan: -MRI lumbar shows some ongoing stenosis but improved from her pre operative MRI -Patient admitted to Hospitalist for pain management, Toradol x1 and steroids have not improved pain -Will have patient get a L5-S1 injection today, patient is NPO -Discussed patient with Dr Miguel Subjective: continued left leg and low back pain Objective: AxOx4 MAEx4 5/5 BLE Sensation intact to light touch BLE Incision CDI Neuro Check Frequency: per routine Urinary Catheter in Place: No - Physician Discussed Patient with Dr.: Miguel Neurosurgery Physical Exam - Vitals, I&O, Labs I and O 01/13/19 01/14/19 01/15/19 05:59 05:59 05:59 Intake Total 500 Output Total 950 Balance -450 Weight 68.039 kg Intake: Oral (ml) 500 Output: Urine (ml) 950 Toilet 950 Other: Intake Quantity Yes Sufficient Number of Voids Toilet 1 Vital Signs Temp Pulse Resp BP Pulse Ox 36.6 C 71 18 114/68 98 01/14/19 04:00 01/14/19 04:00 01/14/19 04:00 01/14/19 04:00 01/14/19 04:00 Laboratory Results 01/14/19 04:47 01/13/19 07:00 ICD10 Worksheet Patient Problems: Problems Problem Status Onset Lumbar stenosis Acute
[2019-01-14] MEDS: PANTOPRAZOLE SODIUM 40 MG TAB PO SCH (08:21)
[2019-01-14] MEDS: FUROSEMIDE 40 MG TAB PO SCH (08:21)
[2019-01-14] MEDS: predniSONE 20 MG TAB PO SCH (08:21)
[2019-01-14] MEDS: ACETAMINOPHEN 500 MG TAB PO SCH ×3 (08:21→23:33)
[2019-01-14] MEDS: POTASSIUM CITRATE 10 MEQ TAB PO SCH (08:23)
--- NOTE | 2019-01-14 09:29 | HOSPPROG ---
Hospitalist Progress Note Assessment/Plan: DIAGNOSES: * Sciatica with ongoing pain; current MRI shows improved anatomy compared to her MRI before surgery, but still with some lumbar stenosis * Meds include prednisone 40 mg, Cymbalta, Toradol, and p.r.n. 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
[2019-01-14] MEDS ORDERED: fentaNYL 100 MCG/2 ML INJ IVP PRN (10:29)
[2019-01-14] MEDS ORDERED: MIDAZOLAM 2 MG/2 ML VIAL IVP PRN (10:29)
[2019-01-14] MEDS ORDERED: FLUMAZENIL 0.5 MG/5 ML MDV IVP PRN (10:29)
[2019-01-14] MEDS ORDERED: NALOXONE HCL 0.4 MG/ML INJ IVP PRN (10:29)
[2019-01-14] MEDS ORDERED: NS 1,000 ML IV SCH (10:30)
[2019-01-14] MEDS ORDERED: MIDAZOLAM 2 MG/2 ML VIAL ONE (10:47)
[2019-01-14] MEDS ORDERED: fentaNYL 100 MCG/2 ML INJ ONE (10:47)
[2019-01-14] MEDS ORDERED: FLUMAZENIL 0.5 MG/5 ML MDV IVP ONE (10:47)
[2019-01-14] MEDS ORDERED: NALOXONE HCL 0.4 MG/ML INJ ONE (10:48)
[2019-01-14 11:24] LABS: INR 0.89 (0.83-1.16); PROTIME(PATIENT) 11.7 SEC (12.0-15.0)
[2019-01-14] MEDS ORDERED: IOPAMIDOL (ISOVUE-M 300) 15 ML VIAL ONE (12:22)
[2019-01-14] MEDS ORDERED: TRIAMCINOLONE ACETONIDE 200 MG/5 ML MDV IM ONE (12:22)
--- NOTE | 2019-01-14 12:53 | PDPROPOC ---
Sedation Plan of Care ASA Classification: ASA 2 Mallampati Score: Class 2 Mallampati Reference Image:
--- NOTE | 2019-01-14 12:54 | PDRADPN ---
Radiology Procedure Note Date of Procedure: 01/14/19 Radiologist: Amy Ahumada Anesthesia: IV Sedation Pre-op Diagnosis: back pain Post-op Diagnosis: same Procedure: L5-S1 KAVYA Inf/Abcess present in the surg proc area at time of surgery?: No
[2019-01-14] MEDS: cycloSPORINE 0.05% 30 DROPERETTE/BOX EACHEYE SCH ×2 (13:24→21:31)
[2019-01-14] MEDS: PRAVASTATIN SODIUM 40 MG TAB PO SCH (21:30)
[2019-01-14] MEDS: SENNOSIDES/DOCUSATE SODIUM TAB PO SCH (21:30)
[2019-01-14] MEDS: DULoxetine 30 MG CAP PO SCH (21:30)
[2019-01-15] MEDS: oxyCODONE IR 5 MG TAB PO PRN ×2 (02:17→09:12)
[2019-01-15] MEDS ORDERED: methylPREDNISolone 4 MG TAB PO SCH (07:30)
[2019-01-15 08:17] VITALS: BP 154/102
--- NOTE | 2019-01-15 08:45 | SOAPPROG ---
RENA Progress Note Assessment/Plan: Assessment: 68 yo F sp L4/5 limiflex with left leg radicular symptoms that may be from mild L4/5 stenosis on MRI Plan: neuro: pain partially improved after KAVYA yesterday, discussed with patient that it can take 7-10 days before epidural steroids fully work continue with PT/OT if pain improved, then ok to discharge and follow up with Dr Miguel in clinic in 2-3 weeks, to schedule appointment please call with neuro changes discussed with DR Miguel 01/15/19 08:43 Subjective: continued left hip/thigh pain, no weakness, no right leg pain. Objective: Vital Signs Temp Pulse Resp BP Pulse Ox 36.9 C 80 18 154/102 H 94 01/15/19 08:00 01/15/19 08:00 01/15/19 08:00 01/15/19 08:00 01/15/19 08:00 Laboratory Results 01/14/19 04:47 01/13/19 07:00 01/14/19 01/15/19 01/16/19 05:59 05:59 05:59 Intake Total 500 Output Total 950 1050 Balance -450 -1050 PT 11.7 SEC (12.0-15.0) L 01/14/19 11:00 INR 0.89 (0.83-1.16) 01/14/19 11:00 AAOx4, +FC PERRL, EOMI, no facial droop 5/5 + light touch ICD10 Worksheet Patient Problems: Problems Problem Status Onset Lumbar stenosis Acute
[2019-01-15] MEDS: FUROSEMIDE 40 MG TAB PO SCH (09:05)
[2019-01-15] MEDS: POTASSIUM CITRATE 10 MEQ TAB PO SCH (09:05)
[2019-01-15] MEDS: PANTOPRAZOLE SODIUM 40 MG TAB PO SCH (09:06)
[2019-01-15] MEDS: predniSONE 20 MG TAB PO SCH (09:06)
[2019-01-15] MEDS: cycloSPORINE 0.05% 30 DROPERETTE/BOX EACHEYE SCH (09:06)
[2019-01-15] MEDS: ACETAMINOPHEN 500 MG TAB PO SCH (09:12)
--- NOTE | 2019-01-15 12:22 | PDMN ---
Medical Necessity Medical necessity: Change to IP, as of 01/14/19, per MD & MCG M-63 Back Pain; los >2 mn for ongoing management of severe sciatica w/ongoing 03/05 pain & inability to walk s/p epidural steroid injection; requiring IV narcotics & therapies
--- NOTE | 2019-01-15 12:56 | PDDCSUM ---
Discharge Summary Discharge Summary: HPI/Hospital Course: This is a 68 yo female with hx of L4-5 Hemilaminectomy and [place] Flex Device insertion who was admitted due to acute low back pain with sciatica. She was evaluated by NSG. Prednisone was started. A KAVYA was performed on 01/14. Her pain has improved. It was a 10/10 on admission. She still has pain but its a 5/10. Home Pain meds were prescribed. Prednisone taper was prescribed. DISCHARE DIAGNOSES: * Sciatica with ongoing pain; current MRI shows improved anatomy compared to her MRI before surgery, but still with some lumbar stenosis F/U: WITH PCP AND WITH NSG MEDS: SEE MED REC EXAM: NAD AAOX3 RRR CTA B TOTAL TIME SPENT ON D/C IS 35 MINS
--- NOTE | 2019-01-15 12:57 | PDIAF ---
- Diagnosis Diagnosis: SCIATICA Code Status: Full Code - Medication Management Discharge Medications: electronically signed and located in the Home Medication List. - Orders Services needed: Home Care, Physical Therapy, Occupational Therapy Home Care Face to Face: I certify that this patient was under my care and that I had the required [id number] encounter meeting the encounter requirements on the discharge day. My findings support the fact that the patient is homebound as defined in Home Care Face to Face Continued: CMS Chapter 7 Medicare Benefits Manual 30.1.1 , The condition of the patient is such that there exists a normal inability to leave home and consequently, leaving home would require a considerable and taxing effort. Diet Recommendation: no restrictions on diet Diet Texture: Regular Texture Diet Additional Instructions: Activity: as tolerated F/u: 1) NSG in 1-3 weeks 2) PCP in 1-2 weeks - Follow Up Care Current Providers and Referrals: Sawyer Miguel MD [Primary Care Provider] - As per Instructions
--- NOTE | 2019-01-15 13:46 | ASMTLACE ---
LACE Length of stay for Answers: 2 days current admission Acuity / Level of Answers: Yes Care: Did the patient have an inpatient admission? Comorbidities - select Answers: Opioid dependence all that apply / Chronic pain Other Notes: DVT; PE; Factor V Leide n # of Emergency department Answers: 1-2 visits in the last 6 months Score: 11 Date Signed: 01/15/2019 01:45 PM Electronically Signed By:MELVA Navarro
--- NOTE | 2019-01-15 13:48 | ASMTDCNOTE ---
Case Management Discharge Discharge Order Complete? Answers: Yes Patient to Obtain Answers: via Family Medications Transportation Arranged Answers: Family/Friends EMTALA Complete Answers: No Case Management Transport Answers: No Form Complete Faxed Final Orders Answers: Yes Agency/Facility Transfer Answers: Yes Report Printed & Faxed to Receiving Agency Family Notified Answers: No Discharge Comments Notes: Pts case discussed w/ Dr. Coleman. CM met w/ pt and confirmed that the plan is still for [facility] to see her. Pt is in agreement. CM notified [facility] of the d/c. CM available for changes. Plan: [facility]; PT, OT Date Signed: 01/15/2019 01:47 PM Electronically Signed By:MELVA Navarro
--- NOTE | 2019-01-15 13:50 | ASDISCHSUM ---
Discharge Information Plan Status:Home with Home Health Medically Cleared to Leave:01/15/2019 Discharge Date:01/15/2019 CM D/C Disposition: ADT D/C Disposition:[id number] Projected Discharge Date:01/15/2019 11:00 AM Transportation at D/C: Discharge Delay Reason: Follow-Up Date:01/15/2019 11:00 AM Discharge Slot: Final Diagnosis: Placement Information Referral Type:*Home Health Care Services Referral ID:[id number] Provider Name:[facility] Address 1:[address] Address 2: City:[place] Selection Factors: State:[place] Patient Contact Information Contact Name:ANTONIO Relationship: Address:[address] Work Phone: City:[place] Alternate Phone: State/Zip Code:[place] [address] Email: Financial Information Financial Class:Medicare Primary Plan Desc:MEDICARE INPATIENT Primary Plan Number:[id number] Secondary Plan Desc:[employer]/MDR SUPPLEMENT Secondary Plan Number:[id number] Assessment Information LACE LACE Length of stay for Answers: 2 days current admission Acuity / Level of Answers: Yes Care: Did the patient have an inpatient admission? Comorbidities - select Answers: Opioid dependence all that apply / Chronic pain Other Notes: DVT; PE; Factor V Leide n # of Emergency department Answers: 1-2 visits in the last 6 months Score: 11 Date Signed: 01/15/2019 01:45 PM Electronically Signed By:MELVA Navarro [facility] CM Progress Note CM Note CM Note Notes: Pt is a 68 y/o female admitted for back pain. Pt reports that she had surgery on 10/10 w/ Dr. Miguel. Pt would like CM to set up HC services w/ [facility]. Referral sent and they are able to accept. Therapies are pending at this time. Pt lives w/ her and reports that he can do the cooking. Pt reports that she can ask for help if she needs it. Pt reports that she uses a cane occasionally. CM confirmed pts address, phone number and PCP. CM to follow. Plan: [facility]; PT, OT Date Signed: 01/13/2019 03:15 PM Electronically Signed By:MELVA Navarro Case Management Discharge Plan Note Case Management Discharge Discharge Order Complete? Answers: Yes Patient to Obtain Answers: via Family Medications Transportation Arranged Answers: Family/Friends EMTALA Complete Answers: No Case Management Transport Answers: No Form Complete Faxed Final Orders Answers: Yes Agency/Facility Transfer Answers: Yes Report Printed & Faxed to Receiving Agency Family Notified Answers: No Discharge Comments Notes: Pts case discussed w/ Dr. Coleman. CM met w/ pt and confirmed that the plan is still for [facility] to come in to see her. Pt is in agreement. CM notified [facility] of the d/c. CM available for changes. Plan: [facility]; PT, OT Date Signed: 01/15/2019 01:47 PM Electronically Signed By:MELVA Navarro Intervention Information Intervention Type:*SULLIVAN-Signed Date of Service:01/13/2019 02:57 PM Patient Type:Observation Staff Member:Effie Powell Hours: Discipline: Severity: Comment:
[2019-01-16] MEDS ORDERED: methylPREDNISolone 4 MG TAB PO SCH (07:30)
--- NOTE | 2019-01-16 19:28 | HOSPPROG ---
Hospitalist Progress Note Assessment/Plan: Pt reportedly not received Oxy IR which had been eRX'ed twice before d/c however pharmacy's computer system crashed for 3 hours and they received a fax to void eRX so they could not honor the successful eRX. HC script for Oxy IR left at director [facility] community education on [address], [place] for to scrap picker. Objective: Vital Signs Temp Pulse Resp BP Pulse Ox 36.9 C 80 18 154/102 H 94 01/15/19 08:00 01/15/19 08:00 01/15/19 08:00 01/15/19 08:00 01/15/19 09:17 01/15/19 01/16/19 01/17/19 05:59 05:59 05:59 Output Total 500 Balance -500 PT 11.7 SEC (12.0-15.0) L 01/14/19 11:00 INR 0.89 (0.83-1.16) 01/14/19 11:00 ICD10 Worksheet Patient Problems: Problems Problem Status Onset Lumbar stenosis Acute
[2019-01-17] MEDS ORDERED: methylPREDNISolone 4 MG TAB PO SCH (07:30)
[2019-01-18] MEDS ORDERED: methylPREDNISolone 4 MG TAB PO SCH (07:30)
== END 2019-01-15 14:38 | disposition home health service (06) | DRG 552 ==
LOC: F3N 07:43 → OBSVTOIN 01-14 18:21
PROVIDERS: ADMIT Student in an Organized Health Care Education/Training Program; ATTEND Student in an Organized Health Care Education/Training Program
DX: M54.42 Lumbago with sciatica, left side (principal); M48.061 Spinal stenosis, lumbar region without neurogenic claudication; G89.29 Other chronic pain; Z86.711 Personal history of pulmonary embolism; Z86.718 Personal history of other venous thrombosis and embolism; Z98.1 Arthrodesis status
CPT/HCPCS: 96374; 97161-GP; 97166-GO; G0378; J1170; J1885; J2250; J2310; J3010; J3301; J7512; Q9967